=== PATIENT | male | born 1990 | race African-American/Black ===

== ENCOUNTER 2016-11-08 11:44 | Emergency (ER) | payer OTHER ==
[~2016-11-08] VITALS: Ht 185.4 cm; Wt 90.7 kg
[2016-11-08] MEDS ORDERED: TRAMADOL 50 MG50 MG PO (12:19)
[2016-11-08 13:25] VITALS: BP 118/82
== END 2016-11-08 15:06 | disposition home or self-care (01) ==
LOC: ER 11:44
DX: S62.306A Unspecified fracture of fifth metacarpal bone, right hand, initial encounter for closed fracture (principal); W22.8XXA Striking against or struck by other objects, initial encounter; Y93.89 Activity, other specified; Y92.89 Other specified places as the place of occurrence of the external cause; Y99.8 Other external cause status